=== PATIENT | male | born 2000 | race Caucasian/White ===

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

== ENCOUNTER 2024-02-14 23:55 | Emergency (ER) | payer OTHER, SELFPAY ==
[2024-02-14 23:56] VITALS: BP 151/96; PULSE 109; RESP 18; TEMP 36.6; O2SAT 98; BMI 34.3
[2024-02-15] MEDS: Diphth,Pertuss(Acell),Tet Vac 0.5 ML Vial IM (00:38)
--- NOTE | 2024-02-15 00:59 | EDS_ITS ---
HPI History of Present Illness Chief Complaint: Laceration Informant: patient Narrative Narrative: Patient is a 23-year-old male who reports a past medical history of Miller. He states he was at work this evening approximately 30 minutes prior to arrival when he was standing holding scissors. He states he had them pointing down in order to be safe. He reports that he forgot they were in his hand and he kicked his right leg backwards and struck the scissors creating 2 small lacerations to his calf. He denies any numbness tingling or weakness. He denies any history of bleeding disorder or blood thinner use. He is unsure of his tetanus status. With concern he may need to wound close he was sent in for evaluation [facility] Medical History Fatty liver Home Medications ?Medication ?Instructions ?Recorded ?Last Taken ?Type NK 02/15/24 Unknown History Allergy/AdvReac Type Severity Reaction Status Date / Time No Known Allergies Allergy Verified 02/14/24 23:56 Social History Smoking Status: Smoker, status unknown tobacco type: e-cigarettes ROS ROS ED Constitutional Constitutional ED: Denies chills or fever(s) ENT ENT ED: Denies sore throat Cardiovascular Cardiovascular: Denies chest pain Respiratory/Chest Respiratory/Chest: Denies cough or dyspnea Gastrointestinal Gastrointestinal: Denies abdominal pain, diarrhea, nausea or vomiting Genitourinary Genitourinary ED: Denies dysuria Musculoskeletal Musculoskeletal: Reports other Details: Positive right calf pain/lacerations ; Denies myalgias Integumentary Reports other Details: Positive right calf lacerations ; Denies rash Neurologic Neurologic: Denies headache(s), paresthesias or weakness Hematologic/Lymphatic Hematologic/Lymphatic: Denies easy bleeding or easy bruising EXAM Physical Exam Const Vital Signs: 02/14/24 23:56 Temperature 98 F Temperature Source Temporal Pulse Rate 109 H Respiratory Rate 18 Blood Pressure 151/96 H Blood Pressure Mean 114 Pulse Ox 98 Positive well nourished, well developed and obese General Appearance ED: well developed; Negative for pallor Nutritional Appearance: obese HEENT HEENT Narrative: Normocephalic atraumatic Eyes PERRL and EOMs intact bilaterally General Eye ED: Negative for scleral icterus Neck supple Resp normal respiratory effort and clear to auscultation bilaterally Cardio regular rate and regular rhythm Extremity Extremity Narrative: Right lower extremity is neurovascularly intact. Patient has a 1 cm dermal layer deep laceration to the midportion of the posterior calf without active bleeding. Approximately 2 cm distally is a second laceration that measures 1.5 cm in length that is subcutaneous layer deep with minimal ooze of blood and no retained foreign body. There are no findings suggest ligamentous or tendon injury. No surrounding soft tissue changes to suggest infection. Achilles tendon is intact. Remainder of the exam is normal Neuro oriented x3, CN's II-XII intact bilaterally and no sensory deficits noted Sensorium / Orientation: alert Motor Exam: strength 5/5 throughout Psych mental status grossly normal Skin Skin Narrative: 2 lacerations to the right posterior calf as documented above General Skin Exam: Negative for jaundice or pallor MDM MDM MDM Narrative Medical decision making narrative: Patient presented to the ER hypertensive but otherwise with stable vitals. He reported simple laceration to his right calf secondary to a pair work scissors. Contamination from this is mild and therefore there is no need for prophylactic antibiotics. As he is unsure of his tetanus status this was provided in the ER. The 1 cm laceration to the posterior calf that is more proximal is only dermal layer deep and therefore amenable to Dermabond. I discussed with the patient the more distal and deeper laceration should be closed with sutures. The patient states he does not want stitches. He request that both wounds be closed with Dermabond. Therefore that was performed as documented below. At this time he has no physical exam findings to suggest ligamentous or tendon injury no findings for retained foreign body or arterial laceration or bony injury and his wounds have been closed and therefore he is otherwise safe for discharge Patient had the posterior calf wounds cleaned with chlorhexidine. Both wounds were copiously irrigated with normal saline. Manual pressure was applied to both wounds and Dermabond placed across them to bring the wound edges together good approximation. Patient tolerated the procedure well without complication History & Record Review Discussion w/independent historian: Patient Discharge Plan Triage Chief Complaint: Laceration ED Provider: Jadon Fang Dx/Rx/DC Orders Clinical Impression: Laceration of right calf without complication, Hypertension Instructions: ED Laceration, Extremity: Skin Glue Prescriptions: No Action NK Primary Care Provider: John Saravia Referrals: John Saravia MD [Primary Care Provider] - Print Language: Czech Disposition Disposition: Home, Self Care Discharge Date/Time: 02/15/24 01:16
== END 2024-02-15 01:16 | disposition home or self-care (01) ==
PROVIDERS: Emergency Provider Emergency Medicine; PCP Family Medicine; Visit Provider Emergency Medicine
DX: S81.811A Laceration without foreign body, right lower leg, initial encounter (principal); I10 Essential (primary) hypertension; F17.290 Nicotine dependence, other tobacco product, uncomplicated; E66.9 Obesity, unspecified; X58.XXXA Exposure to other specified factors, initial encounter; Z23 Encounter for immunization
CPT/HCPCS: 12001; 90471; 90715; 99282

== ENCOUNTER 2024-04-27 02:35 | Emergency (ER) | payer OTHER, SELFPAY ==
[2024-04-27 02:36] VITALS: BP 151/94; PULSE 103; RESP 16; TEMP 36.6; O2SAT 98; BMI 33.9
--- NOTE | 2024-04-27 02:47 | EDS_ITS ---
HPI History of Present Illness Chief Complaint: Upper Extremity Injury Detail of Chief Complaint: Crush injury right hand Informant: patient Occured/Mechanism Mechanism/Context: Yes blunt trauma Comment: Occurred at work at 0100 Onset/Context/Timing Onset: Today and Hours Context: Sudden Onset Timing: Continuous Quality of Pain: Dull and Aching Location: Ulnar side of the right hand Current Severity: Mild Maximum Severity: Moderate Worsened by: Use Relieved by: Rest makes it better Associated Symptoms Associated Symptoms: Positive for Loss of Funtion; Negative for Parasthesia or Weakness Narrative Narrative: Patient is a 23-year-old [id number] male presents due to injury to his right hand. Is right-hand dominant. This occurred at work at 0100. He localizes the pain to the right little finger and ulnar side of the right hand. He denies paresthesia, anesthesia or motor aches. Tetanus Immunization: 5-10 years Prior similar symptoms: No Recent Illness/Hospitalization: No PFSH PFSH Medical History Fatty liver Home Medications ?Medication ?Instructions ?Recorded ?Last Taken ?Type NK 02/15/24 Unknown History Allergy/AdvReac Type Severity Reaction Status Date / Time No Known Allergies Allergy Verified 04/27/24 02:39 Social History Smoking Status: Current every day smoker tobacco type: e-cigarettes ROS ROS ED Musculoskeletal Musculoskeletal: Reports other Details: Pain right hand ; Denies back pain, myalgias or neck pain Integumentary Reports Abrasions Neurologic Neurologic: Denies paresthesias or weakness Hematologic/Lymphatic Hematologic/Lymphatic: Denies easy bleeding or easy bruising EXAM Physical Exam Const Vital Signs: 04/27/24 02:36 Temperature 98 F Temperature Source Temporal Pulse Rate 103 H Respiratory Rate 16 Blood Pressure 151/94 H Blood Pressure Mean 113 Pulse Ox 98 Oxygen Delivery Method Room Air Positive well nourished and well developed General Appearance ED: well developed and NAD HEENT Reports moist mucous membranes normocephalic and atraumatic Eyes PERRL and EOMs intact bilaterally Resp normal respiratory effort Cardio regular rate and regular rhythm Extremity full ROM; Negative for normal to inspection Extremity Narrative: Patient has evidence seen an abrasion over the proximal phalanx of the right little finger and over the fifth metacarpal bone. There is also pain outpatient over the fourth MCP joint. Median, radial and ulnar function intact. Capillary fill is normal. Sensation is normal. There is no pain ovation over the carpal bones or distal radius or ulna. Neuro oriented x3, moves all extremities, no focal motor deficits and no sensory deficits noted Sensorium / Orientation: alert Psych mental status grossly normal Skin General Skin Exam: Negative for petechiae Lesions: no lesions Rashes: no rashes Trauma: abrasion MDM MDM MDM Narrative Medical decision making narrative: X-ray was obtained to evaluate for contusion versus fracture. Radiography Chest X-Ray - ED: Read by ED Physician (Three-view x-ray of the hand was independent reviewed interpreted me as negative for fracture. There is no evidence of subluxation or foreign body either.) Diagnostic Testing: Radiology report was noted. There is evidence of lucency proximal fifth digit. In my opinion this is due to skin fold at the MCP joint. It is only seen on the PA view. Discharge Plan Triage Chief Complaint: Upper Extremity Injury ED Provider: Zaid Whittaker Dx/Rx/DC Orders Clinical Impression: Crushing injury of right hand, initial encounter, Abrasion of multiple sites of right hand and finger Instructions: ED Crush Injury, Hand Prescriptions: No Action NK Primary Care Provider: John Saravia Referrals: [facility] [Group of Physicians] - 3-5 Days John Saravia MD [Primary Care Provider] - Activity Restrictions/Additional Instructions: 1. Apply ice 6-10 times a day to your right hand 2. You may have increased pain over the next 24 to 48 hours. 3. You may take either 4 ibuprofen tablets every 8 hours or 2 Aleve tablets every 12 hours for next 3 to 5 days. Print Language: Sri Lankan Disposition Disposition: Home, Self Care
--- NOTE | 2024-04-27 02:47 | RAD_ITS ---
INDICATION: Injury/Pain EXAMINATION/TECHNIQUE: X-RAY - RIGHT XR Hand Min 3 Views COMPARISON: None. FINDINGS: SOFT TISSUES: Unremarkable. BONES/JOINTS: Linear lucency projecting over the proximal fifth phalanx with no evidence of cortical interruption. The remainder of the right hand is unremarkable. No significant degenerative changes. No erosive changes. RAD/Hand Min 3 Views IMPRESSION: Linear lucency projecting over the proximal fifth phalanx. This may represent artifact or a nondisplaced fracture. Otherwise unremarkable views of the right hand. Electronically Signed: John Dowd DO at 3:17 EDT ,
[2024-04-27 03:37] VITALS: BP 147/84; PULSE 95; RESP 18; TEMP 36.8; O2SAT 100
== END 2024-04-27 03:41 | disposition home or self-care (01) ==
PROVIDERS: Emergency Provider Emergency Medicine; PCP Family Medicine; Visit Provider Emergency Medicine
DX: S60.511A Abrasion of right hand, initial encounter (principal); F17.290 Nicotine dependence, other tobacco product, uncomplicated; W23.0XXA Caught, crushed, jammed, or pinched between moving objects, initial encounter
CPT/HCPCS: 73130; 99283

== ENCOUNTER 2024-08-12 01:10 | Emergency (ER) | payer OTHER, SELFPAY ==
[2024-08-12 01:11] VITALS: BP 164/100; PULSE 90; RESP 20; TEMP 36.6; O2SAT 100; BMI 32.3
--- NOTE | 2024-08-12 01:46 | EKG12_ITS ---
Test Reason : DYSRHYTHMIA Blood Pressure : */* mmHG Vent. Rate : 85 BPM Atrial Rate : 85 BPM P-R Int : 170 ms QRS Dur : 98 ms QT Int : 384 ms P-R-T Axes : 8 42 -14 degrees QTcB Int : 456 ms Normal sinus rhythm Possible Inferior infarct , age undetermined Abnormal ECG Confirmed by HARPREET CHU, JUVE ([id number]), assistant film editor KHALIDA PALACIOS ([id number]) on 08/12/2024 8:16:54 AM Referred By: Confirmed By: JUVE MULLINS MD
--- NOTE | 2024-08-12 01:47 | EDS_ITS ---
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 He feels better now. No chest pain. No reason to be dehydrated recently. Denies any recent illness but states he has had a poor appetite for several months and has been losing weight without intention. Seen his doctor and not currently taking any medications. Does not do any illicit drugs. He states he is not exposed to any chemicals or inhalants that he knows of at work and he was not doing anything very exertional at the time all this started. Has never had this happen before. [facility] Medical History Fatty liver Home Medications ?Medication ?Instructions ?Recorded ?Last Taken ?Type NK 02/15/24 Unknown History Allergy/AdvReac Type Severity Reaction Status Date / Time No Known Allergies Allergy Verified 08/12/24 01:17 Social History Smoking Status: Current every day smoker tobacco type: e-cigarettes ROS ROS ED Constitutional Constitutional ED: Reports anorexia, sweats and weight loss; Denies chills or fever(s) Eyes Eyes: Denies change in vision or diplopia ENT ENT ED: Denies rhinorrhea or sore throat Cardiovascular Cardiovascular: Reports racing heartbeat and syncope; Denies chest pain or leg edema Respiratory/Chest Respiratory/Chest: Reports dyspnea; Denies cough Gastrointestinal Gastrointestinal: Denies abdominal pain, diarrhea, nausea or vomiting Genitourinary Genitourinary ED: Denies dysuria or hematuria Musculoskeletal Musculoskeletal: Denies back pain or neck pain Integumentary Denies abscess or rash Neurologic Neurologic: Denies headache(s), paresthesias or weakness Psychiatric Psychiatric: Denies anxiety or suicidal thoughts EXAM Physical Exam Const Vital Signs: 08/12/24 01:11 08/12/24 01:46 08/12/24 02:33 Temperature 97.9 F Temperature Source Oral Pulse Rate 90 Pulse Rate [Lying] 77 Pulse Rate [Sitting (for 1 minute prior to obtaining)] 91 Pulse Rate [Standing (for 1 minute prior to obtaining)] 97 Respiratory Rate 20 H Blood Pressure 164/100 H Blood Pressure [Lying] 129/76 H Blood Pressure [Sitting (for 1 minute prior to obtaining)] 132/94 H Blood Pressure [Standing (for 1 minute prior to obtaining)] 141/100 H Blood Pressure Mean 121 Blood Pressure Mean [Lying] 93 Blood Pressure Mean [Sitting (for 1 minute prior to obtaining)] 106 Blood Pressure Mean [Standing (for 1 minute prior to obtaining)] 113 Pulse Ox 100 Oxygen Delivery Method Room Air 08/12/24 03:11 Temperature Temperature Source Pulse Rate 81 Pulse Rate [Lying] Pulse Rate [Sitting (for 1 minute prior to obtaining)] Pulse Rate [Standing (for 1 minute prior to obtaining)] Respiratory Rate 17 Blood Pressure 146/84 H Blood Pressure [Lying] Blood Pressure [Sitting (for 1 minute prior to obtaining)] Blood Pressure [Standing (for 1 minute prior to obtaining)] Blood Pressure Mean 104 Blood Pressure Mean [Lying] Blood Pressure Mean [Sitting (for 1 minute prior to obtaining)] Blood Pressure Mean [Standing (for 1 minute prior to obtaining)] Pulse Ox 98 Oxygen Delivery Method Room Air Positive well nourished, well developed and obese General Appearance ED: well developed and NAD Nutritional Appearance: obese HEENT Reports moist mucous membranes normocephalic and atraumatic Eyes PERRL and EOMs intact bilaterally Neck full ROM and supple Chest Wall inspection of chest normal and palpation of chest normal Resp normal respiratory effort and clear to auscultation bilaterally Effort and Inspection: able to speak in complete sentences Cardio regular rate, regular rhythm and no murmurs GI non-tender and non-distended Auscultation: normoactive bowel sounds Palpation: soft Back/Spine no CVA tenderness General Back: other FROM Extremity normal to inspection Extremity Narrative: No calf tenderness bilaterally General Extremety ED: Negative for edema, pulses abnormal or tenderness General Extremity: Negative for edema or pulses abnormal Neuro oriented x3, CN's II-XII intact bilaterally and no sensory deficits noted Neuro Narrative: Normal speech. Normal gait. Sensorium / Orientation: awake and alert Motor Exam: strength 5/5 throughout Psych mental status grossly normal Skin no rashes or lesions noted and no wounds MDM MDM MDM Narrative Medical decision making narrative: Differential here includes PE, dysrhythmia, less likely to be myocardial infarction, myocarditis; dehydration or other metabolic derangement or anemia or toxic exposure. Patient did not have a headache to suggest carbon monoxide and no one else at work was symptomatic to his knowledge. His EKG is normal. His D-dimer came back negative ruling out pulmonary embolus. His blood counts are normal I interpreted his labs is basically unremarkable. Troponin is normal. Two-view chest x-ray is normal in my interpretation and orthostatics are negative. I advised the patient so far as workup is unremarkable and reassuring, we are going to obtain a second troponin to rule out something like a ventricular dysrhythmia that could have caused syncope and an elevated troponin, which he is at a low risk of having. His second measurement returned lower than the initial, both within normal limits. The patient asks if this could have been a panic attack. Unclear. He states that he was feeling a little out of breath and his hands were tingling temporarily, simultaneously, anxiety/hyperventilation can cause those symptoms, as I discussed with him. Close outpatient follow-up advised. Low suspicion for chemical exposure at work given the available history. Lab Data Attestation: I reviewed the patient's lab results. Labs: Laboratory Results - last 24 hr 08/12/24 08/12/24 01:58 04:12 WBC 9.9 RBC 5.41 Hgb 15.4 Hct 45.5 MCV 84.1 MCH 28.5 MCHC 33.8 RDW Std Deviation 39.8 RDW Coeff of Jagdish 13.0 Plt Count 263 MPV 11.5 Immature Gran % (Auto) 0.600 Neut % (Auto) 64.1 Lymph % (Auto) 25.1 Carroll % (Auto) 8.3 Eos % (Auto) 0.8 Baso % (Auto) 1.1 H Absolute Neuts (auto) 6.4 Absolute Lymphs (auto) 2.49 Nucleated RBC % 0 D-Dimer Quant (PE/DVT) < 0.27 L Sodium 138 Potassium 3.4 L Chloride 108 H Carbon Dioxide 23.0 Anion Gap 7 BUN 15 Creatinine 1.07 Estim Creat Clear Calc 150.73 Est GFR (MDRD) Af Amer 112 Est GFR (MDRD) Non-Af 92 BUN/Creatinine Ratio 14.0 Glucose 103 Calcium 9.6 Troponin I High Sens 10 7 Radiography Chest X-Ray - ED: 2 View, Read by ED Physician, Normal, No Acute Disease and No Infiltrates Diagnostic Testing: Clinical Impression(s) from Imaging Studies Chest X-Ray 08/12/24 02:20 IMPRESSION: No radiographic evidence of acute cardiopulmonary disease. Electronically Signed: Carl Pierce MD at 3:10 EST , Rhythm Strip Rhythm Strip: Sinus Rhythm Rate: 85 Ectopy: None EKG Initial EKG: Attestation: I personally reviewed and interpreted this EKG as follows: Interpretation: Sinus Rhythm and No Acute Injury Pattern Comments: Nml axis & intervals; nml EKG, isolated Q waves in lead III Prior EKG tracings: not available for review Prior: No Prior Discharge Plan Triage Chief Complaint: Syncope ED Provider: [place] Dx/Rx/DC Orders Clinical Impression: Syncope Instructions: ED Fainting, Uncertain Cause Prescriptions: No Action NK Primary Care Provider: John Sarvaia Referrals: John Saravia MD [Primary Care Provider] - 3-5 Days Print Language: Burmese Disposition Disposition: Home, Self Care
--- NOTE | 2024-08-12 01:50 | ED.RN ---
NO OLD EKG
[2024-08-12 02:04] LABS: Absolute Lymphocyte Count 2.49 X10^3/uL (0.83-4.51); Absolute Neutrophil Count 6.4 X10^3/uL (2.0-7.7); Basophil# 0.11 X10^3/uL; Basophil% 1.1 % (0-1); Eosinophil# 0.08 X10^3/uL; Eosinophils% 0.8 % (0-5); Hematocrit 45.5 % (40-54); Hemoglobin 15.4 g/dL (13.0-16.5); Lymphocyte # 2.49 X10^3/ul (0.83-4.51); Lymphocyte % 25.1 % (19-41); Mean Corp Hgb Conc 33.8 g/dL (32-36); Mean Corpuscular Hgb 28.5 pg (27.0-32.0); Mean Corpuscular Volume 84.1 fL (80-94); Mean Platelet Vol. 11.5 fl (6.2-12.0); Monocyte# 0.82 X10^3/uL; Monocyte% 8.3 % (0-10); NRBC Flagged by Analyzer 0 % (0-5); Neutrophil # 6.37 X10^3/uL (2.7-7.7); Neutrophil % 64.1 % (47-70); Platelet Count 263 K/mm3 (150-450); RBC Distribution Width SD 39.8 fl (35.1-43.9); Red Blood Count 5.41 M/mm3 (4.6-6.2); White Blood Count 9.9 K/mm3 (4.4-11.0)
--- NOTE | 2024-08-12 02:20 | RAD_ITS ---
EXAM: XR CHEST, 2 VIEWS CLINICAL INDICATION: sob, syncope TECHNIQUE: Frontal and lateral views of the chest. COMPARISON: No relevant prior studies available. FINDINGS: LUNGS AND PLEURAL SPACES: Unremarkable. No consolidation or edema. No pneumothorax. No effusion. HEART: Unremarkable. Cardiac silhouette not enlarged. MEDIASTINUM: Central airways and mediastinal contour are unremarkable. BONES/JOINTS: Unremarkable. No acute fracture. SOFT TISSUES: Unremarkable. RAD/Chest PA and Lateral IMPRESSION: No radiographic evidence of acute cardiopulmonary disease. Electronically Signed: Carl Pierce MD at 3:10 EST ,
[2024-08-12 02:26] LABS: D-Dimer Quantitative (DVT/PE) < 0.27 FEU/ug/m (0.27-0.49)
[2024-08-12 02:27] LABS: Anion Gap 7 (5-15); BUN 15 mg/dL (7-18); Calcium,Total 9.6 mg/dL (8.5-10.1); Chloride 108 mmol/L (98-107); Creatinine, Serum 1.07 mg/dL (0.70-1.30); EST Glomerular Filtration Rate 92 mL/min (>60); Est Glom Filt Rate - Afr Amer 112 mL/min (>60); Estimated Creatinine Clearance 150.73 ml/min; Glucose 103 mg/dL (74-106); Potassium 3.4 mmol/L (3.5-5.1); Sodium Level 138 mmol/L (136-145); Troponin-I HS (w/2H Reflex) 10 pg/mL (3.0-78.0)
[2024-08-12 02:33] VITALS: BP 129/76; BP 132/94; BP 141/100; PULSE 77; PULSE 91; PULSE 97
[2024-08-12 03:11] VITALS: BP 146/84; PULSE 81; RESP 17; O2SAT 98
[2024-08-12 04:01] LABS: Reflex Troponin-HS? (from REC) Y
[2024-08-12 04:40] LABS: Troponin-I HS 7 pg/mL (3.0-78.0)
[2024-08-12 05:03] VITALS: BP 135/62; PULSE 91; RESP 18; TEMP 36.3; O2SAT 96
== END 2024-08-12 05:04 | disposition home or self-care (01) ==
PROVIDERS: Emergency Provider Emergency Medicine; PCP Family Medicine; Visit Provider Emergency Medicine
DX: R55 Syncope and collapse (principal); F17.290 Nicotine dependence, other tobacco product, uncomplicated
CPT/HCPCS: 71046; 80048; 84484; 85025; 85379; 93005; 99284; A4216